=== PATIENT | male | born 1985 | race Caucasian/White ===

== ENCOUNTER 2021-04-26 13:04 | Emergency (ER) | payer OTHER ==
[2021-04-26 14:29] LABS: BASOPHIL 0.3 % (0-2); EOSINOPHIL 1.6 % (0-5); HCT 43.1 % (42.0-52.0); HGB 14.9 g/dl (13.2-18.0); LYMPHOCYTE 32.3 % (15-48); MCH 30.4 pg (25.0-31.0); MCHC 34.6 g/dL (32.0-36.0); MONOCYTE 5.1 % (0-12); MPV 9.8 fL (6.0-9.5); NEUTROPHIL 60.4 % (41-80); NRBC 0; PLT 235 K/uL (150-400); RDW 12.5 % (11.5-14.0); WBC 6.1 K/uL (4.0-10.5)
[2021-04-26 14:33] LABS: BILIRUBIN NEGATIVE (NEGATIVE); BLOOD NEGATIVE Ery/uL (NEGATIVE); CLARITY CLEAR (CLEAR); COLOR YELLOW (YELLOW); GLUCOSE (U) NORMAL (NORMAL); LEUKOCYTES NEGATIVE Leu/uL (NEGATIVE); NITRITE NEGATIVE (NEGATIVE); PROTEIN NEGATIVE (NEGATIVE); SPECIFIC GRAVITY >=1.030 (1.001-1.030); UROBILINOGEN 0.2 mg/dL (0.2-1.0)
[2021-04-26 14:55] LABS: BUN/CREAT RATIO (CALC) 12.3 RATIO; CREATININE 1.14 mg/dL (0.67-1.17); POTASSIUM 4.2 mmol/L (3.5-5.1)
[2021-04-26] MEDS ORDERED: VIBRAMYCIN100 MG PO ×2 (16:21→16:24)
[2021-04-26] MEDS ORDERED: NAPROXEN500 MG PO ×2 (16:21→16:24)
== END 2021-04-26 16:40 | disposition home or self-care (01) ==
LOC: FER 13:04
PROVIDERS: Nurse Practitioner Family
DX: N45.1 Epididymitis (principal); I86.1 Scrotal varices; I10 Essential (primary) hypertension; Z20.822 Contact with and (suspected) exposure to COVID-19; Z79.899 Other long term (current) drug therapy
CPT/HCPCS: 36415; 76870; 80048; 81003; 85025; J1885; J7030; U0002